=== PATIENT | male | born 1945 | race Caucasian/White ===

== ENCOUNTER → 2017-01-21 | Day surgery (SDC) | payer MEDICARE, BC ==
[~2017-01-21] MED LIST: ASPI81TA81 PO; ATOR1TAB18 PO; CENTTAB PO; CLOP75TA PO; CYAN1TAB24 PO; DULO1CAP2 PO; FOLI400T PO; GABA300C5 PO; GLIM4TAB PO; LACTATED RINGER'S 1,000 ML BAG IV ONE; LEVO-168 PO; LISI10TA3 PO; METF1000 PO; METF500T PO; NEXI40GR PO; PROPOFOL 100 MG/10 ML INJ IV ONE; TRAD5TAB PO; VITA10003 PO
== END | disposition home or self-care (01) ==
LOC: ESDC 11:56
PROVIDERS: ATTEND Internal Medicine Gastroenterology
DX: Z12.11 Encounter for screening for malignant neoplasm of colon (principal); Z86.010 Personal history of colon polyps; K21.9 Gastro-esophageal reflux disease without esophagitis; K20.9 Esophagitis, unspecified; K29.70 Gastritis, unspecified, without bleeding; E11.9 Type 2 diabetes mellitus without complications; Z79.84 Long term (current) use of oral hypoglycemic drugs
CPT/HCPCS: 00740; 00810; 43239; 45330; 82948; 88305; J7120

== ENCOUNTER → 2017-01-22 | Outpatient (CLI) | payer MEDICARE, BC ==
[~2017-01-22] VITALS: Ht 188 cm; Wt 92.0 kg
[~2017-01-22] MED LIST changes: -LACTATED RINGER'S 1,000 ML BAG IV ONE; -PROPOFOL 100 MG/10 ML INJ IV ONE; +PROPOFOL 200 MG/20 ML AMP IV ONE
[2017-01-22 09:06] VITALS: BP 133/88; PULSE 83; RESP 16; TEMP 97.4; O2SAT 94
[2017-01-22 10:57] VITALS: TEMP 97.8
[2017-01-22 11:15] VITALS: BP 118/82; PULSE 73; RESP 16; O2SAT 93
--- NOTE | 2017-01-22 19:01 | EKG ---
Date Performed: 01/22/2017 Time Performed: 08:16:46 PTAGE: 71 years EKG: Sinus rhythm INFERIOR MYOCARDIAL INFARCTION , PROBABLY OLD WITH POSTERIOR EXTENSION ABNORMAL ECG NO PREVIOUS TRACING DOCTOR: Ned Belcher Interpretating Date/Time 01/22/2017 19:00:03
== END ==
LOC: HEND 07:54
PROVIDERS: ATTEND Hospitalist
DX: Z12.11 Encounter for screening for malignant neoplasm of colon (principal); Z86.010 Personal history of colon polyps; K64.8 Other hemorrhoids; Z01.810 Encounter for preprocedural cardiovascular examination
CPT/HCPCS: 93005